=== PATIENT | female | born 1960 | race Caucasian/White ===

== ENCOUNTER 2019-05-07 13:45 | Emergency (ER) | payer OTHER ==
[2019-05-07] MEDS ORDERED: Lidocaine 1% (PF) 30 ML VIAL ONE (14:22)
[2019-05-07] MEDS ORDERED: Lidocaine 4% Cream 5 GM TUBE w/ Tegaderm ONE (14:24)
== END 2019-05-07 15:38 | disposition home or self-care (01) ==
LOC: ERS 13:45
DX: L02.11 Cutaneous abscess of neck (principal); L03.221 Cellulitis of neck; F17.210 Nicotine dependence, cigarettes, uncomplicated; I10 Essential (primary) hypertension
CPT/HCPCS: 10061; J2001